=== PATIENT | female | born 1990 | race Caucasian/White ===

== ENCOUNTER 2016-10-26 18:17 | Inpatient (IN) | payer BC ==
[~2016-10-26] VITALS: Ht 165.1 cm; Wt 87.5 kg
[2016-10-26 19:36] VITALS: BP 130/79; PULSE 85
[2016-10-26 19:45] VITALS: RESP 18
[2016-10-26] MEDS ORDERED: ACETAMINOPHEN 325 MG TAB PO PRN (19:45)
[2016-10-26] MEDS ORDERED: ZOLPIDEM TARTRATE 10 MG TAB PO PRN (19:45)
[2016-10-26] MEDS: LACTATED RINGER'S 1000 ML IV SCH ×2 (19:59→22:00)
[2016-10-26 20:00] LABS: AUTOMATED NEUTROPHIL # 6.8 TH/MM3 (1.8-7.7); BASOPHIL % 0.3 % (0.0-2.0); EOSINOPHIL # 0.1 TH/MM3 (0-0.4); HEMATOCRIT 33.2 % (35.0-46.0); LYMPH % 23.5 % (9.0-44.0); LYMPHOCYTE # 2.6 TH/MM3 (1.0-4.8); MEAN CELL VOLUME 69.4 FL (80.0-100.0); MEAN CORPUSCULAR HGB CONC 31.7 % (32.0-36.0); MONO % 13.3 % (0.0-8.0); NEUT % 61.9 % (16.0-70.0); PLATELET COUNT 305 TH/MM3 (150-450); RED BLOOD COUNT 4.78 MIL/MM3 (4.00-5.30); RED CELL DISTRIBUTION WIDTH 17.4 % (11.6-17.2)
[2016-10-26] MEDS ORDERED: OXYTOCIN 30 UNITS 500ML PREMIX IV ONE (20:00)
[2016-10-26] MEDS ORDERED: LACTATED RINGER'S 1000 ML BOLUS IV PRN (20:00)
[2016-10-26] MEDS ORDERED: NS 500 ML BOLUS IV PRN (20:00)
[2016-10-26] MEDS ORDERED: MINERAL OIL 10 ML VIAL TOP PRN (20:00)
[2016-10-26] MEDS ORDERED: LIDOCAINE HCL 1% 50 ML VIAL I-DERMAL PRN (20:00)
[2016-10-26] MEDS ORDERED: LIDOCAINE HCL 1% 50 ML VIAL INFIL PRN (20:00)
[2016-10-26] MEDS ORDERED: DINOPROSTONE 10 MG VAG INSERT VAGINAL ONE (20:00)
[2016-10-26] MEDS ORDERED: ONDANSETRON HCL 4 MG/2 ML VIAL IV PRN (20:00)
[2016-10-26] MEDS ORDERED: NS 1000 ML IV PRN (20:00)
[2016-10-26] MEDS ORDERED: CITRIC ACID-SODIUM CITRATE LIQ 30 ML UDC PO SCH (20:00)
[2016-10-26 20:02] LABS: HEMO FLAGS AUTO DIFF
[2016-10-26 20:11] LABS: BACTERIA, URINE RARE /hpf; BLOOD, URINE NEG (NEG); COMMENT (UR) CULT NOT INDICATED; CULTURE IF INDICATED CULT NOT INDICATED; GLUCOSE,URINE NEG (NEG); KETONE, URINE NEG (NEG); NITRITE,URINE NEG (NEG); PH, URINE 6.5 (5.0-8.5); SQUAMOUS EPITHELIAL CELL URINE 1 /hpf (0-5); URINE COLOR LIGHT-YELLOW (YELLW/STRAW)
[2016-10-26 20:35] LABS: OVALOCYTES 1+ (NORMAL); SCAN/DIFF AUTO DIFF CONFIRMED
[2016-10-26 21:23] VITALS: BP 126/76; PULSE 88
[2016-10-26 21:30] VITALS: RESP 18; TEMP 98.3
[2016-10-26 22:02] VITALS: BP 128/76; PULSE 85
[2016-10-26 22:15] VITALS: RESP 18; TEMP 98.3
[2016-10-27] VITALS (57 sets, daily range): BP systolic 109–138; BP diastolic 46–90; PULSE 82–137; RESP 16–20; TEMP 97.8–98.9
[2016-10-27] MEDS ORDERED: fentaNYL 2MCG-BUPIV 0.125% INJ 100 ML ONE (02:12)
[2016-10-27] MEDS ORDERED: DO NOT ADMINISTER ANTICOAGULANTS XX PRN (03:15)
[2016-10-27] MEDS ORDERED: NO SYSTEM NARCOTICS XX PRN (03:15)
[2016-10-27] MEDS ORDERED: fentaNYL 2MCG-BUPIV 0.125% INJ 100 ML EPIDURAL SCH (03:15)
[2016-10-27] MEDS ORDERED: ePHEDrine/NS 50 MG/5 ML SYR IV PRN (03:15)
[2016-10-27] MEDS ORDERED: OXYTOCIN 30 UNITS/NS 500ML PREMIX IV SCH (04:45)
[2016-10-27] MEDS ORDERED: PREN29TA PO (06:28)
[2016-10-27] MEDS ORDERED: ACYC400T PO (06:29)
[2016-10-27] MEDS ORDERED: SODIUM CHLORIDE 0.9% FLUSH 5 ML FLUSH IV PRN (07:15)
[2016-10-27] MEDS ORDERED: oxyCODONE/ACETAMINOPHEN 5 MG/325 MG TAB PO PRN ×2 (07:15)
[2016-10-27] MEDS ORDERED: ZOLPIDEM TARTRATE 5 MG TAB PO PRN (07:15)
[2016-10-27] MEDS ORDERED: ALUMINUM/MAGNESIUM/SIMETH 30 ML CUP PO PRN (07:15)
[2016-10-27] MEDS ORDERED: BENZOCAINE 20% TOPICAL SPRAY 60 ML CAN TOPICAL PRN (07:15)
[2016-10-27] MEDS ORDERED: DOCUSATE SODIUM 50 MG/SENNA 8.6 MG TAB PO PRN (07:15)
[2016-10-27] MEDS ORDERED: ACETAMINOPHEN 325 MG TAB PO PRN (07:15)
[2016-10-27] MEDS ORDERED: WITCH HAZEL 50%/GLYCERIN 12.5% 40 PAD JAR TOPICAL PRN (07:15)
[2016-10-27] MEDS ORDERED: ONDANSETRON ODT 4 MG TAB PO PRN (07:15)
[2016-10-27] MEDS ORDERED: MISOPROSTOL 200 MCG TAB ONE (08:52)
--- NOTE | 2016-10-27 09:27 | MH ---
cc: CHRISTOPHER LUONG DATE OF ADMISSION: 10/26/2016 DATE OF : 1990 ADMISSION DIAGNOSIS Term . HISTORY OF PRESENT ILLNESS A 26-year-old single white female, para 1-0-1-1 with an EDC of 10/27/2016 by early ultrasound. Her preop course was benign. She is now admitted for induction per request due to her term status and desire for delivery. PREVIOUS SURGERY Age 7 umbilical hernia repair. MEDICATIONS Vitamins. ALLERGIES None. TRANSFUSIONS None. OBSTETRICAL HISTORY Vaginal term delivery in 2009, ectopic right side treated by laparoscopic partial salpingecty in 2011. SOCIAL HISTORY Single. 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 Alcohol, tobacco and drugs are none. PHYSICAL EXAMINATION GENERAL: This is a gravid white female in no distress. HEENT: Exam is normal. CHEST: Chest is clear. HEART: Regular rate. BREASTS: The breasts are symmetrical. ABDOMEN: Gravid. EFW is 3200 grams. CERVIX: Cervix is closed 80 effaced. -1 station intact. ASSESSMENT As above. PLAN The patient is now admitted for Cervidil today with Pitocin planned for tomorrow. Discussed possible need for if failure to progress or distress. The patient would like to proceed. Her strep culture was negative. Herpes culture screen was negative. She has been on Valtrex prophylaxis since 09/26/2016. MD TABITHA Arita/ERIC /9:02 AM /9:26 AM LIZA
[2016-10-27] MEDS ORDERED: MISOPROSTOL 200 MCG TAB PO ONE (09:45)
[2016-10-27] MEDS ORDERED: MISOPROSTOL 200 MCG TAB PR ONE (09:45)
[2016-10-27 10:40] LABS: HEMATOCRIT 29.1 % (35.0-46.0)
[2016-10-27 10:45] LABS: REVIEW FLAG FINAL
[2016-10-27] MEDS: LACTATED RINGER'S 1000 ML IV SCH (12:00)
[2016-10-27] MEDS ORDERED: METHYLERGONOVINE MALEATE 0.2 MG/ML VIAL IM ONE (14:45)
[2016-10-27] MEDS: OXYTOCIN INJ 20 UNITS in LACTATED RINGER'S 1000 ML INJ 1,000 ML IV SCH ×2 (15:04→22:47)
[2016-10-27] MEDS ORDERED: DIPHTH/TETANUS/ACEL PERTUSSIS (BOOSTER) 0.5 ML VIAL/PFS IM ONE (16:00)
[2016-10-27] MEDS ORDERED: MEASLES, MUMPS, RUBELLA VACCINE 0.5 ML VIAL SQ ONE (16:00)
[2016-10-27 16:15] LABS: HEMATOCRIT 29.7 % (35.0-46.0)
[2016-10-27 16:22] LABS: REVIEW FLAG FINAL
[2016-10-27] MEDS: IBUPROFEN 600 MG TAB PO PRN (20:36)
[2016-10-27] MEDS: METHYLERGONOVINE MALEATE 0.2 MG TAB PO SCH (20:36)
[2016-10-28] MEDS: METHYLERGONOVINE MALEATE 0.2 MG TAB PO SCH ×4 (03:12→21:48)
[2016-10-28 06:48] LABS: AUTOMATED NEUTROPHIL # 9.3 TH/MM3 (1.8-7.7); BASOPHIL % 0.3 % (0.0-2.0); EOSINOPHIL # 0.1 TH/MM3 (0-0.4); EOSINOPHIL % 0.8 % (0.0-4.0); HEMATOCRIT 26.5 % (35.0-46.0); LYMPH % 23.2 % (9.0-44.0); LYMPHOCYTE # 3.3 TH/MM3 (1.0-4.8); MEAN CELL VOLUME 69.8 FL (80.0-100.0); MEAN CORPUSCULAR HEMOGLOBIN 21.9 PG (27.0-34.0); MEAN CORPUSCULAR HGB CONC 31.4 % (32.0-36.0); MONO % 9.9 % (0.0-8.0); NEUT % 65.8 % (16.0-70.0); PLATELET COUNT 241 TH/MM3 (150-450); RED BLOOD COUNT 3.79 MIL/MM3 (4.00-5.30); RED CELL DISTRIBUTION WIDTH 17.9 % (11.6-17.2); WHITE BLOOD COUNT 14.1 TH/MM3 (4.0-11.0)
[2016-10-28 06:57] LABS: HEMO FLAGS AUTO DIFF
[2016-10-28] MEDS: OXYTOCIN INJ 20 UNITS in LACTATED RINGER'S 1000 ML INJ 1,000 ML IV SCH (07:07)
[2016-10-28 07:58] LABS: SCAN/DIFF AUTO DIFF CONFIRMED
[2016-10-28 07:59] LABS: OVALOCYTES 1+ (NORMAL); PLATELET ESTIMATE SMEAR NORMAL (NORMAL); PLATELET MORPHOLOGY NORMAL (NORMAL)
[2016-10-28 08:00] VITALS: BP 118/75; PULSE 88; RESP 16; TEMP 98
[2016-10-28] MEDS: SODIUM CHLORIDE 0.9% FLUSH 5 ML FLUSH IV SCH ×2 (09:00→21:00)
[2016-10-28] MEDS: LACTATED RINGER'S 1000 ML IV SCH ×2 (12:00→20:00)
[2016-10-28] MEDS: IBUPROFEN 600 MG TAB PO PRN (21:49)
[2016-10-29] MEDS: METHYLERGONOVINE MALEATE 0.2 MG TAB PO SCH ×2 (02:53→10:04)
[2016-10-29] MEDS: LACTATED RINGER'S 1000 ML IV SCH (03:06)
[2016-10-29 08:21] VITALS: BP 123/73; PULSE 78; RESP 18; TEMP 97.7
[2016-10-29] MEDS ORDERED: METH-703 PO (11:03)
--- NOTE | 2016-10-29 11:04 | HHI.DCPOC ---
Discharge Care Plan Report Symptoms to Your Doctor -Temperate above 100.5 degrees -Redness, of incision or excessive or foul smelling drainage -Unusual pain or calf pain -Increased vaginal bleeding -Painful or difficulty urinating -Feelings of extreme sadness or anxiety after 2 weeks Goals to Promote Your Health * To prevent worsening of your condition and complications * To maintain your health at the optimal level Directions to Meet Your Goals Take your medications as prescribed Follow your dietary instruction Follow activity as directed Ensure plenty of rest for recovery Drink fluids for hydration Keep your appointments as scheduled Take your immunizations and boosters as scheduled If your symptoms worsen call your PCP, if no PCP go to Urgent Care Center or Emergency Room Smoking is Dangerous to Your Health. Avoid second hand smoke Call the 24-hour crisis hotline for domestic abuse at Moris Fischer MD Oct 29, 2016 11:04
--- NOTE | 2016-11-02 09:49 | MD ---
cc: CHRISTOPHER LUONG M.D. ADMISSION DATE: 10/26/2016 DISCHARGE DATE: 10/29/2016 ADMISSION DIAGNOSIS Term DISCHARGE DIAGNOSIS Term , delivered. HISTORY OF PRESENT ILLNESS The patient is a 26-year-old single white female para 1-0-0-1 with an EDC of 10/27/2016 admitted for Cervidil induction on 10/26/2016 and rapidly progressed to a spontaneous vaginal delivery on the morning of 10/27/2016. A viable vigorous male, 's 9 and 9, weight 8 pounds 13 ounces. had some uterine atony responded well to Cytotec and then Methergine and Pitocin. Her hemoglobin stabilized 8.1. She is asymptomatic and discharged home in excellent condition on 10/29/2016. She was carefully instructed in perineal and incision care. Advised NPV, light activity, take her vitamin with iron pills daily. She was given a script for Methergine 0.2 mg p.o. q6h for 20 pills and return to see me in six weeks. She is to call for abnormal pain, bleeding, temperature, signs of infection or any signs of incision infection. MD TABITHA Arita/RADHA /11:09 AM /9:38 AM
== END 2016-10-29 12:02 | disposition home or self-care (01) | DRG 775 ==
LOC: H2EB 18:17 → H1EA 10-27 10:16
PROVIDERS: ADMIT Obstetrics & Gynecology; ATTEND Obstetrics & Gynecology
PROC: 10E0XZZ Delivery of Products of Conception, External Approach (ICD-10-PCS; principal; 2016-10-26)
PROC: 10907ZC Drainage of Amniotic Fluid, Therapeutic from Products of Conception, Via Natural or Artificial Opening (ICD-10-PCS; 2016-10-26)
DX: O62.2 Other uterine inertia (principal); Z37.0 Single live birth; Z3A.00 Weeks of gestation of pregnancy not specified
CPT/HCPCS: 81001; 85014; 85018; 85025; 86900; 86901; J2210; J2590; J3010; J7120